=== PATIENT | female | born 1970 | race Caucasian/White ===

== ENCOUNTER → 2023-03-16 06:27 | Day surgery (SDC) | payer OTHER, SELFPAY | LOC: GI 06:27 | PROVIDERS: ATTENDING PHYSICIAN Internal Medicine Gastroenterology | DX: D12.5 Benign neoplasm of sigmoid colon (principal); K63.5 Polyp of colon; R93.3 Abnormal findings on diagnostic imaging of other parts of digestive tract; R19.4 Change in bowel habit; K44.9 Diaphragmatic hernia without obstruction or gangrene; K31.89 Other diseases of stomach and duodenum; R12 Heartburn; R11.0 Nausea | CPT/HCPCS: 45385; 45380; 43239; 88305 ==

== ENCOUNTER → 2023-09-16 15:57 | Outpatient (REF) | payer OTHER, SELFPAY | LOC: RAD 15:57 | PROVIDERS: ATTENDING PHYSICIAN Obstetrics & Gynecology Gynecology | DX: N93.9 Abnormal uterine and vaginal bleeding, unspecified (principal) | CPT/HCPCS: 76830; 76856 ==

== ENCOUNTER → 2023-11-15 14:09 | Outpatient (REF) | payer OTHER, SELFPAY | LOC: RAD 14:09 | PROVIDERS: ATTENDING PHYSICIAN Surgery | DX: N20.0 Calculus of kidney (principal) | CPT/HCPCS: 76775 ==

== ENCOUNTER → 2024-02-14 13:13 | Outpatient (REF) | payer OTHER, SELFPAY | LOC: WDC 13:13 | PROVIDERS: ATTENDING PHYSICIAN Obstetrics & Gynecology Gynecology; FAMILY PHYSICIAN Nurse Practitioner Adult Health | DX: Z12.31 Encounter for screening mammogram for malignant neoplasm of breast (principal) | CPT/HCPCS: 77063; 77067 ==

== ENCOUNTER → 2024-03-13 09:20 | Outpatient (REF) | payer OTHER, SELFPAY | LOC: HWRAD 09:20 | PROVIDERS: ATTENDING PHYSICIAN Nurse Practitioner Adult Health | DX: R22.2 Localized swelling, mass and lump, trunk (principal) | CPT/HCPCS: 76705 ==

== ENCOUNTER → 2024-04-05 12:28 | Outpatient (REF) | payer OTHER, SELFPAY | LOC: RCS 12:28 | PROVIDERS: ATTENDING PHYSICIAN Nuclear Medicine Nuclear Cardiology; FAMILY PHYSICIAN Nurse Practitioner Adult Health | DX: R00.2 Palpitations (principal) | CPT/HCPCS: 93306 ==

== ENCOUNTER → 2024-12-17 15:20 | Outpatient (REF) | payer OTHER, SELFPAY | LOC: MRI 3T 15:20 | PROVIDERS: ATTENDING PHYSICIAN Internal Medicine Gastroenterology; FAMILY PHYSICIAN Family Medicine | DX: K58.0 Irritable bowel syndrome with diarrhea (principal); K76.89 Other specified diseases of liver; R93.5 Abnormal findings on diagnostic imaging of other abdominal regions, including retroperitoneum | CPT/HCPCS: 74183; A9575 ==